=== PATIENT | female | born 1960 | race African-American/Black ===

== ENCOUNTER 2019-10-22 16:50 | Emergency (ER) | payer OTHER, BC ==
--- NOTE | 2019-10-22 18:02 | CT ---
CT OF THE BRAIN WITHOUT CONTRAST: 10/22/[address] was done for evaluation of headache. The ventricles are normal in size with no shift . No intracranial bleeding, mass or sign of acute stroke was found. No edema or other abnormal parenc hymal findings were seen. The visible paranasal sinuses and mastoid air cells are clear. The skull is normal in appearance. IMPRESSION: No acute intracranial findings. Preliminary report called to Kelsi in ER at 1752 on 10/22/19. POS: HOME
[2019-10-22] MEDS ORDERED: Lisinopril 20 MG TAB ONE (18:16)
== END 2019-10-22 18:20 | disposition home or self-care (01) ==
LOC: BURERS 16:50
DX: I10 Essential (primary) hypertension (principal); R51 Headache; Z63.79 Other stressful life events affecting family and household
CPT/HCPCS: 70450

== ENCOUNTER 2020-12-14 16:48 | Emergency (ER) | payer BC, OTHER ==
[2020-12-14] MEDS ORDERED: Dexamethasone 4 MG TAB ONE (18:12)
[2020-12-14 18:35] LABS: SARS-CoV-2 NAA Rapid Test Not Detected (NotDetected)
== END 2020-12-14 18:14 | disposition home or self-care (01) ==
LOC: BURERS 16:48
DX: B34.9 Viral infection, unspecified (principal); Z20.822 Contact with and (suspected) exposure to COVID-19
CPT/HCPCS: 0240U; 87081; 87430; 99284; J8540

== ENCOUNTER 2021-01-19 07:37 | Emergency (ER) | payer OTHER ==
[2021-01-19] MEDS ORDERED: AMOXicillin 250 MG CAP ONE (08:12)
[2021-01-19] MEDS ORDERED: HYDROcodone/Acetaminophen 10/325 mg Tablet ONE (08:12)
== END 2021-01-19 08:17 | disposition home or self-care (01) ==
LOC: BURERS 07:37
DX: K02.9 Dental caries, unspecified (principal); R60.0 Localized edema
CPT/HCPCS: 99283

== ENCOUNTER 2024-05-08 17:03 | Emergency (ER) | payer OTHER | END 2024-05-08 17:30 | disposition home or self-care (01) | LOC: BURERS 17:03 | DX: R05.1 Acute cough (principal) | CPT/HCPCS: 99283 ==